=== PATIENT | female | born 1990 | race Caucasian/White ===

== ENCOUNTER 2019-07-27 05:50 | Inpatient (IN) | payer MEDICAID, OTHER ==
[~2019-07-27] VITALS: Ht 165.1 cm; Wt 95.8 kg
[2019-07-27] VITALS (44 sets, daily range): BP systolic 98–150; BP diastolic 54–90
--- NOTE | 2019-07-27 05:35 | NUR ---
ALYSSIA LEVIN presented to unit via ambulation from ED, accompanied by SO , with c/o INDUCTION. ALYSSIA LEVIN weighed, gowned, voided, and to bed. EFHM and TOCO applied, VS taken. ALYSSIA LEVIN oriented to bed controls, call light, TV, heat, and A/C controls.
[2019-07-27] MEDS ORDERED: PREN1TAB79 PO (05:53)
[2019-07-27] MEDS ORDERED: MINERAL OIL CONCENTRATE 99.9% 15 ML UDC TOP PRN (06:00)
[2019-07-27] MEDS ORDERED: CATHETER FLUSH 10 ML SYR IV PRN (06:00)
[2019-07-27 06:26] LABS: BASOPHILS % (AUTO) 0 % (0-10); EOSINOPHILS # (AUTO) 0.1 10^3/uL (0.0-0.3); EOSINOPHILS % (AUTO) 1 % (0-10); HEMATOCRIT 39 % (35-52); HEMOGLOBIN 13.3 G/DL (11.5-16.0); LYMPHOCYTES # (AUTO) 2.4 X 10^3 (1.0-4.0); LYMPHOCYTES % (AUTO) 24 % (12-44); MEAN CORPUSCULAR HEMOGLOBIN 31 PG (25-34); MEAN CORPUSCULAR HGB CONC 34 G/DL (32-36); MEAN CORPUSCULAR VOLUME 90 FL (80-99); MONOCYTES # (AUTO) 0.6 X 10^3 (0.0-1.0); MONOCYTES % (AUTO) 6 % (0-12); NEUTROPHILS # (AUTO) 7.1 X 10^3 (1.8-7.8); NEUTROPHILS % (AUTO) 69 % (42-75); PLATELET COUNT 159 10^3/uL (130-400); RED CELL DISTRIBUTION WIDTH 13.5 % (10.0-14.5); WHITE BLOOD COUNT 10.2 10^3/uL (4.3-11.0)
[2019-07-27 06:41] LABS: BILIRUBIN,URINE NEGATIVE (NEGATIVE); CLARITY,URINE VERY CLOUDY; COLOR,URINE YELLOW; GLUCOSE, URINE (UA) NEGATIVE (NEGATIVE); KETONES,URINE NEGATIVE (NEGATIVE); LEUKOCYTE ESTERASE ,URINE 3+ (NEGATIVE); NITRITE,URINE NEGATIVE (NEGATIVE); PH,URINE 6 (5-9); PROTEIN,URINE 1+ (NEGATIVE); UROBILINOGEN,URINE NORMAL (NORMAL)
[2019-07-27 06:49] LABS: BACTERIA,URINE LARGE /HPF; SQUAMOUS EPITHELIAL CELL,UR TNTC /HPF; WBC,URINE TNTC /HPF
[2019-07-27] MEDS ORDERED: OXYTOCIN/NORMAL SALINE 500 ML IV ONE ×2 (07:07→14:27)
[2019-07-27] MEDS: D5 LR IV SOLUTION 1,000 ML IV SCH ×3 (07:20→22:35)
[2019-07-27] MEDS ORDERED: SUFENTA 0.6MCG/ML BUPIVA 0.125 100 ML ONE (08:14)
[2019-07-27] MEDS ORDERED: fentaNYL INJECTION 100 MCG/2 ML AMP ONE (08:44)
[2019-07-27] MEDS ORDERED: BUPIVACAINE 0.25% 30 ML (SENSORCAINE) VIAL ONE (09:14)
[2019-07-27] MEDS ORDERED: LACTATED RINGERS 1,000 ML IV ONE ×2 (09:16)
[2019-07-27] MEDS ORDERED: ONDANSETRON 4 MG/2 ML (SDV) Z0FRAN IV PRN (09:30)
[2019-07-27] MEDS ORDERED: NALOXONE 0.4 MG/ML 1 ML (NARCAN) VIAL IV PRN (09:30)
[2019-07-27] MEDS ORDERED: EPIDURAL (SUFENTA 0.6MCG/ML BUPIVA 0.125%) 100 ML BAG EPI PRN (09:30)
--- NOTE | 2019-07-27 14:24 | NUR ---
pericare performed , vpad to perineum assisted out of stirrups. underwear on. repositioned to high sesay. 1447 reviewed room service and diet order. verbalized understanding. 1446 new bag of pitocin hung per orders, decreased to 125ml/hr per dr calderon orders. denies further need at this time.
[2019-07-27] MEDS ORDERED: OXYTOCIN/NORMAL SALINE 500 ML IV SCH (14:25)
--- NOTE | 2019-07-27 14:26 | NUR ---
epidural off, epidural catheter removed tip intact.
[2019-07-27] MEDS ORDERED: MEASLES,MUMPS,RUBELLA 1 EA INJ SQ ONE (14:30)
[2019-07-27] MEDS ORDERED: WITCH HAZEL(TUCKS) 40 EA JAR TOP PRN (14:30)
[2019-07-27] MEDS ORDERED: BENZOCAINE/MENTHOL (DERMOPLAST) 56 ML CAN TP PRN (14:30)
[2019-07-27] MEDS ORDERED: TETANUS,DIPTH,PERTUSS P/F (BOOSTRIX) 0.5 ML VIAL IM ONE (14:30)
--- NOTE | 2019-07-27 14:37 | NUR ---
infant skin to skin on moms chest . fundal massage by this RN no clots expressed. pitocin infusing at 999ml/hr per dr orders. heavy flow noted firmed with massage.
--- NOTE | 2019-07-27 14:37 | NUR ---
u/2 after fundal massage.
--- NOTE | 2019-07-27 14:37 | NUR ---
one small clot expressed with fundal massage. remains at mothers breast actively .
[2019-07-27] MEDS: ACETAMINOPHEN 500 MG TAB (TYLENOL) PO SCH (16:20)
--- NOTE | 2019-07-27 16:41 | History & Physical-OB ---
OB - Chief Complaint & HPI Date/Time Date of Admission: Date of Admission: Jul 27, 2019 at 05:50 Date seen by a Provider: Jul 27, 2019 Time Seen by a Provider: 06:45 Chief Complaint/History OB-Reason for Admission/Chief: Induction of Labor Hx : 4 Hx Para: 3 Expected Date of Delivery: Aug 03, 2019 Gestational Age in Weeks: 39 Gestational Age in Days: 0 Admission Nurse Assessment Rev: Yes Allergies and Home Medications Allergies Coded Allergies: No Known Drug Allergies (Unverified , 07/27/19) Home Medications Vit W-Ca,Fe,FA(<1 mg) 1 Each Tablet, 1 EACH PO DAILY, (Reported) Patient Home Medication List Home Medication List Reviewed: Yes OB - History Hx of Present Care: Yes Ultrasounds: Normal mid trimester US Obstetrical Complications: None Medical Complications: None Information Induced Hypertension: No Maternal Gestational Diabetes: No Hemorrhage: No Obstetrical History Hx : 4 Hx Para: 3 Hx # Term Pregnancies: 0 Hx # Pregnancies: 0 Number of Living Children: 3 Hx Termination: No Hx Multiple Gestation: No Hx Ectopic : No Hx Stillbirth: No Hx Complication: No Hx Induced Hypertens: No Hx Maternal Gestational Diabet: No Hx Hemorrhage: No Delivery History Hx Dystocia: No Hx Forceps Assisted Delivery: No Hx Vacuum Extraction Assisted: No Hx Placenta Abnormality: No Hx Distress: No Hx Large For Gestational Age I: No Hx Small for Gestational Age I: No Hx Section: No Hx Vaginal Delivery Post C-Sec: No Hx Blood Disorders: No Adverse Rxn to Tranfusion: No Patient Past Medical History No significant medical history Social History/Family History Recent Infectious Disease Expo: No Alcohol Use: Denies Use Recreational Drug Use: No OB - Admission Exam Physical Exam Vitals: Vital Signs 07/27/19 07/27/19 09:25 12:30 Temp 36.8 Pulse 57 Resp 20 B/P (MAP) 98/59 Pulse Ox 99 O2 Delivery Room Air HEENT: NCAT Heart: Rhythm Normal Lungs: Clear Abdomen: Gravid Extremities: Normal Reflexes: Normal Cervical Dilatation: 3cm Effacement: 50% Station: -3 Membranes: Intact Heart Rate: 130's Accelerations: Accelerations Present Decelerations: No Decelerations Short Term Variability: Present Group Home Variability: Average (6-25) Contractions on Admission: < 5 Minutes Apart Intensity: Moderate Perez Scoring Tool (Modified) Dilation (cm): 3-4cm (2) Effacement (%): 31-51% (1) Descent/Station: -3 (0) Cervix Consistency: Medium(1) Cervix Position: Posterior (0) Add 1 point for: Each previous vaginal delivery (1) Labs Laboratory Tests Test 07/27/19 06:00 07/27/19 06:07 Range/Units Urine Color YELLOW Urine Clarity VERY CLOUDY H Urine pH 6 5-9 Urine Specific [place] 1.020 1.016-1.022 Urine Protein 1+ H NEGATIVE Urine Glucose (UA) NEGATIVE NEGATIVE Urine Ketones NEGATIVE NEGATIVE Urine Nitrite NEGATIVE NEGATIVE Urine Bilirubin NEGATIVE NEGATIVE Urine Urobilinogen NORMAL NORMAL MG/DL Urine Leukocyte Esterase 3+ H NEGATIVE Urine RBC (Auto) 2+ H NEGATIVE Urine RBC 5-10 H /HPF Urine WBC TNTC H /HPF Urine Squamous Epithelial Cells TNTC H /HPF Urine Crystals NONE /LPF Urine Bacteria LARGE H /HPF Urine Casts NONE /LPF Urine Mucus LARGE H /LPF Urine Culture Indicated YES White Blood Count 10.2 4.3-11.0 10^3/uL Red Blood Count 4.36 4.35-5.85 10^6/uL Hemoglobin 13.3 11.5-16.0 G/DL Hematocrit 39 35-52 % Mean Corpuscular Volume 90 80-99 FL Mean Corpuscular Hemoglobin 31 25-34 PG Mean Corpuscular Hemoglobin Concent 34 32-36 G/DL Red Cell Distribution Width 13.5 10.0-14.5 % Platelet Count 159 130-400 10^3/uL Mean Platelet Volume 12.0 H 7.4-10.4 FL Neutrophils (%) (Auto) 69 42-75 % Lymphocytes (%) (Auto) 24 12-44 % Monocytes (%) (Auto) 6 0-12 % Eosinophils (%) (Auto) 1 0-10 % Basophils (%) (Auto) 0 0-10 % Neutrophils # (Auto) 7.1 1.8-7.8 X 10^3 Lymphocytes # (Auto) 2.4 1.0-4.0 X 10^3 Monocytes # (Auto) 0.6 0.0-1.0 X 10^3 Eosinophils # (Auto) 0.1 0.0-0.3 10^3/uL Basophils # (Auto) 0.0 0.0-0.1 10^3/uL OB - Assessment/Plan/Diagnosis Assessment Assessment: induction of labor Admission Dx Intrauterine at 39 weeks Admission Status: Inpatient Order (span 2 midnights) Reason for Inpatient Admission: Pitocin Induction of Labor Plan Plan: Induction Induction Method: per Pitocin Protocol Discharge Diagnosis Diagnosis: Intrauterine at 39 weeks ROMAN MARVIN DO Jul 27, 2019 16:41
--- NOTE | 2019-07-27 16:43 | OB Labor & Delivery Record ---
Vag Delivery Note Vag Delivery Note Date of Delivery: 07/27/19 Preoperative Diagnosis: Angie Jolly is a (29 /Para / , Gestational Age (wks)39with [] Postoperative Diagnosis: Same Surgeon: ROMAN MARVIN Generating Plant Superintendent: [None] Anesthesia: [Epidural] Delivery Type: [Normal Spontaneous Vaginal Delivery] Findings: [] Viable [Female] , apgars [], weight [] Lacerations: NOone Intact placenta with 3 vessel cord. No nuchal cord, body cord or shoulder dystocia Cytotec 800 mcg placed for hemorrhage prophylaxis Estimated Blood Loss: [300] ml Complications: None Condition: Stable Description of Procedure: The patient is a 29 year old female who presented [for Pitocin Induction of Labor]. She was admitted and informed consent was obtained. Her labor course was remarkable for [] She progressed to complete dilatation and began to push. She was then set up for delivery. The infant's head was delivered atraumatically in the [NATHALIE] position. The shoulders and remainder of the 's body were then delivered without difficulty. Upon delivery, the head was held below the level of the perineum and the mouth and nares were bulb suctioned. The cord was doubly clamped and cut and the infant was handed off to the pediatric staff. Cord blood was obtained. An intact placenta with 3-vessel cord delivered via Emily and there was found to be minimal bleeding.~ Vigorous fundal massage was performed and the fundus was found to be firm. IV oxytocin was given. Examination of the vagina and perineum revealed no lacerations or tears Following the repair, sponge, instrument and needle counts were correct. Mom and baby were both in stable condition in the labor suite. Vitals - Labs Vital Signs - I&O Vital Signs Date Time Temp Pulse Resp B/P (MAP) Pulse Ox O2 Delivery O2 Flow Rate FiO2 07/27/19 12:30 57 20 98/59 99 Room Air 07/27/19 12:20 55 20 98/64 100 Room Air 07/27/19 12:05 57 20 104/56 99 Room Air 07/27/19 11:45 59 20 113/57 100 Room Air 07/27/19 11:40 60 20 121/71 99 Room Air 07/27/19 11:30 55 20 117/79 99 Room Air 07/27/19 11:15 53 20 123/74 99 Room Air 07/27/19 11:00 61 20 137/75 100 Room Air 07/27/19 10:45 68 20 107/54 100 Room Air 07/27/19 10:30 54 18 120/69 100 Room Air 07/27/19 10:20 56 18 117/69 99 Room Air 07/27/19 10:15 54 18 109/71 99 Room Air 07/27/19 10:10 56 18 110/67 99 Room Air 07/27/19 10:05 50 18 111/71 98 Room Air 07/27/19 10:00 59 18 110/68 100 Room Air 07/27/19 09:55 63 18 113/69 99 Room Air 07/27/19 09:50 55 18 112/71 99 Room Air 07/27/19 09:45 60 18 112/67 100 Room Air 07/27/19 09:40 76 18 129/78 100 Room Air 07/27/19 09:30 64 20 113/74 100 Room Air 07/27/19 09:25 36.8 67 20 116/78 100 Room Air 07/27/19 09:20 64 20 121/78 99 Room Air 07/27/19 09:15 60 20 135/76 99 Room Air 07/27/19 09:05 61 20 121/79 99 Room Air 07/27/19 09:00 57 20 121/78 99 Room Air 07/27/19 08:55 54 20 125/76 Room Air 07/27/19 08:40 53 20 121/73 Room Air 07/27/19 08:25 62 20 120/72 Room Air 07/27/19 08:10 59 20 118/70 Room Air 07/27/19 07:55 66 20 112/78 Room Air 07/27/19 07:40 36.6 67 20 150/72 Room Air 07/27/19 05:35 36.79824 70 18 116/80 (92) Labs Laboratory Tests 07/27/19 06:00: Urine Color YELLOW, Urine Clarity VERY CLOUDYH, Urine pH 6, Urine Specific [place] 1.020, Urine Protein 1+H, Urine Glucose (UA) NEGATIVE, Urine Ketones NEGATIVE, Urine Nitrite NEGATIVE, Urine Bilirubin NEGATIVE, Urine Urobilinogen NORMAL, Urine Leukocyte Esterase 3+H, Urine RBC (Auto) 2+H, Urine RBC 5-10H, Urine WBC TNTCH, Urine Squamous Epithelial Cells TNTCH, Urine Crystals NONE, Urine Bacteria LARGEH, Urine Casts NONE, Urine Mucus LARGEH, Urine Culture Indicated YES 07/27/19 06:07: White Blood Count 10.2, Red Blood Count 4.36, Hemoglobin 13.3, Hematocrit 39, Mean Corpuscular Volume 90, Mean Corpuscular Hemoglobin 31, Mean Corpuscular Hemoglobin Concent 34, Red Cell Distribution Width 13.5, Platelet Count 159, Mean Platelet Volume 12.0H, Neutrophils (%) (Auto) 69, Lymphocytes (%) (Auto) 24, Monocytes (%) (Auto) 6, Eosinophils (%) (Auto) 1, Basophils (%) (Auto) 0, Neutrophils # (Auto) 7.1, Lymphocytes # (Auto) 2.4, Monocytes # (Auto) 0.6, Eosinophils # (Auto) 0.1, Basophils # (Auto) 0.0 ROMAN MARVIN DO Jul 27, 2019 16:43
--- NOTE | 2019-07-27 20:45 | NUR ---
Pt up ambulating and requested IV removed per protocol so pt may shower. Pt bleeding minimal and no concerns at this time.
[2019-07-27] MEDS ORDERED: CATHETER FLUSH 10 ML SYR IV SCH (22:00)
[2019-07-27] MEDS: DOCUSATE SODIUM 100 MG (COLACE) CAP PO SCH (22:32)
[2019-07-27] MEDS: IBUPROFEN 800 MG (MOTRIN) TAB PO SCH (22:32)
[2019-07-28] VITALS: BP 137/67
[2019-07-28] MEDS: ACETAMINOPHEN 500 MG TAB (TYLENOL) PO SCH ×2 (01:45→13:46)
[2019-07-28 04:19] VITALS: BP 133/60
[2019-07-28] MEDS: IBUPROFEN 800 MG (MOTRIN) TAB PO SCH ×2 (04:19→10:10)
[2019-07-28 06:01] LABS: BASOPHILS % (AUTO) 0 % (0-10); EOSINOPHILS # (AUTO) 0.2 10^3/uL (0.0-0.3); EOSINOPHILS % (AUTO) 1 % (0-10); HEMATOCRIT 39 % (35-52); LYMPHOCYTES # (AUTO) 2.7 X 10^3 (1.0-4.0); LYMPHOCYTES % (AUTO) 26 % (12-44); MEAN CORPUSCULAR HEMOGLOBIN 30 PG (25-34); MEAN CORPUSCULAR HGB CONC 33 G/DL (32-36); MEAN CORPUSCULAR VOLUME 91 FL (80-99); MEAN PLATELET VOLUME 11.6 FL (7.4-10.4); MONOCYTES # (AUTO) 0.7 X 10^3 (0.0-1.0); MONOCYTES % (AUTO) 7 % (0-12); NEUTROPHILS # (AUTO) 6.9 X 10^3 (1.8-7.8); NEUTROPHILS % (AUTO) 66 % (42-75); PLATELET COUNT 133 10^3/uL (130-400); RED CELL DISTRIBUTION WIDTH 13.6 % (10.0-14.5); WHITE BLOOD COUNT 10.5 10^3/uL (4.3-11.0)
--- NOTE | 2019-07-28 06:40 | Discharge Summary ---
Diagnosis/Chief Complaint Date of Admission Jul 27, 2019 at 05:50 Date of Discharge July 28, 2019 Discharge Date: Jul 28, 2019 Discharge Time: 14:00 Admission Diagnosis Admission Diagnosis Intrauterine at 39 weeks Discharge Diagnosis Intrauterine at 39 weeks--delivered Reason Hospital Visit Pitocin Induction of Labor at 39 weeks gestation Discharge Summary Hospital Course Was the Problem List Reviewed?: Yes Hospital Course Ms. Jolly was admitted for Pitocin Induction of Labor. She received an Epidural for antepartum anesthesia. I artificially ruptured her membranes. She progressed to complete, then delivered a healthy, viable female . The remainder of her hospitalization was unremarkable. Her vital signs remained stable throughout her time in the hospital. I will discharge her to home with instructions, prescriptions and a follow up appointment. Labs Laboratory Tests 07/27/19 06:00: Urine Clarity VERY CLOUDYH, Urine Protein 1+H, Urine Leukocyte Esterase 3+H, Urine RBC (Auto) 2+H, Urine RBC 5-10H, Urine WBC TNTCH, Urine Squamous Epithelial Cells TNTCH, Urine Bacteria LARGEH, Urine Mucus LARGEH 07/27/19 06:07: Mean Platelet Volume 12.0H 07/28/19 05:45: Mean Platelet Volume 11.6H, Red Blood Count 4.32L Procedures None. Discharge Physical Examination Allergies: Coded Allergies: No Known Drug Allergies (Unverified , 07/27/19) Vitals & I&Os Vital Signs Date Time Temp Pulse Resp B/P (MAP) Pulse Ox O2 Delivery O2 Flow Rate FiO2 07/28/19 04:19 36.2 72 20 133/60 99 Room Air General Appearance: Alert, Oriented X3, Cooperative HEENT: Atraumatic Respiratory: Clear to Auscultation Cardiovascular: Regular Rate, No Murmurs Abdominal: Normal Bowel Sounds, No Tenderness Extremities: No Clubbing, No Cyanosis Skin: No Rashes Neuro: Normal Gait, Normal Speech Psych/Mental Status: Mental Status NL Discharge Home Medications Reviewed and agree with Discharge Medication list on patient's Discharge Instruction sheet Instructions to Patient/Family Please see electronic discharge instructions given to patient. Clinical Quality Measures DVT/VTE Risk/Contraindication: Risk Factor Score Per Nursin RFS Level Per Nursing on Admit: 1=Low/No VTE PPX ROMAN MARVIN DO Jul 28, 2019 06:40
[2019-07-28] MEDS ORDERED: ACET-77 PO (06:44)
[2019-07-28] MEDS ORDERED: OXC5T PO (06:44)
[2019-07-28] MEDS ORDERED: DOCU100C37 PO (06:44)
[2019-07-28] MEDS ORDERED: IBUP-1780 PO (06:44)
--- NOTE | 2019-07-28 08:02 | Anesthesia-Regional Post-Op ---
Regional Patient Condition Mental Status: Alert, Oriented x3 Circulation: Same as Pre-Op Headache: Absent Sensation: Full Recovery Motor Block: Absent Post Op Complications Complications None Follow Up Care/Instructions Patient Instructions None needed. Anesthesia/Patient Condition Patient is doing well, no complaints, stable vital signs, no apparent adverse anesthesia problems. No complications reported per nursing. LESLYE DIEZ CRNA Jul 28, 2019 08:02
--- NOTE | 2019-07-28 09:35 | NUR ---
sitting up in bed with s/o at side on bed with parents. denies pain or need. fresh ice water given. continuing to monitor.
[2019-07-28 10:10] VITALS: BP 130/85
[2019-07-28] MEDS: DOCUSATE SODIUM 100 MG (COLACE) CAP PO SCH (10:10)
--- NOTE | 2019-07-28 11:00 | NUR ---
report to Alba Coleman Rn.
--- NOTE | 2019-07-28 13:41 | NUR ---
DISCHARGE PAPERS PROVIDED AND REVIEWED WITH PT, PT VERBALIZES UNDERSTANDING AND DENIES ANY QUESTIONS AT THIS TIME. PAPER SIGNED. PRESCRIPTIONS AND FOLLOW UP APPOINTMENT CARD ALSO PROVIDED AT THIS TIME.
--- NOTE | 2019-07-28 16:25 | NUR ---
ALYSSIA LEVIN demonstrates understanding of discharge instructions and accurately returns instructions upon questioning. Copy of Post-Discharge Instructions and Medication Discharge Instructions given to patient. ALYSSIA LEVIN is able to manage continuing needs after discharge. Patients belongings returned to patient. Skin dry and intact; no breakdown noted. Patient discharged from [id number] on 07-28-19 at . ALYSSIA LEVIN left floor via ambulation, accompanied by staff and s/o.
== END 2019-07-28 16:25 | disposition home or self-care (01) | DRG 807 ==
LOC: LDRP 05:50
PROVIDERS: ADMIT Obstetrics & Gynecology; ATTEND Obstetrics & Gynecology
PROC: 10E0XZZ Delivery of Products of Conception, External Approach (ICD-10-PCS; principal; 2019-07-27)
PROC: 3E033VJ Introduction of Other Hormone into Peripheral Vein, Percutaneous Approach (ICD-10-PCS; 2019-07-27)
DX: O80 Encounter for full-term uncomplicated delivery (principal); Z37.0 Single live birth; Z3A.39 39 weeks gestation of pregnancy
CPT/HCPCS: 36415; 81000; 85025; 86850; 86900; 86901; 87077; 87088